=== PATIENT | female | born 1965 | race Hispanic/Latino ===

== ENCOUNTER 2017-05-19 09:08 | Observation (INO) | payer OTHER ==
--- NOTE | 2017-05-19 09:25 | ED PDOC ---
Arrival/HPI - General Chief Complaint: Weakness/Neurological Deficit Time Seen by Provider: 05/19/17 09:10 Historian: Patient - History of Present Illness Narrative History of Present Illness (Text): 05/19/17 09:10 Ratna Pina is a 52 year old female, whose past medical history includes hypothyroidism, lupus, and migraines, who presents to the emergency department complaining of intermittent episodes of chest pressure for the past three weeks. Patient reports today the pain has radiated to her left shoulder blade and today her left arm went numb causing it to feel weak. Patient denies any shortness of breath, headache, cough, nausea, vomiting, abdominal pain, back pain, lower extremity pain, or other complaints. PMD: Dr. Zacarias Time/Duration: Prior to Arrival (left arm numbness) Symptom Onset: Gradual Symptom Course: Unchanged Quality: Pressure (chest pressure ) Activities at Onset: Rest Modifying Factors (Text): radiates to left shoulder blade and left arm numbness/weakness Past Medical History - Provider Review Nursing Documentation Reviewed: Yes - Infectious Disease Hx of Infectious Diseases: None - Tetanus Immunization Tetanus Immunization: Unknown - Cardiac Hx Pacemaker: No - Neurological Hx Paralysis: No - Endocrine/Metabolic Hx Systemic Lupus Erythematosus: Yes - Musculoskeletal/Rheumatological Hx Musculoskeletal Disorders: No - Psychiatric Hx Emotional Abuse: No Hx Physical Abuse: No - Anesthesia Hx Anesthesia: No - Suicidal Assessment Feels Threatened In Home Enviroment: No Family/Social History - Physician Review Nursing Documentation Reviewed: Yes Family/Social History: Other (father had heart bypass ) Smoking Status: Never Smoked Hx Alcohol Use: No Hx Substance Use Treatment: No Allergies/Home Meds Allergies/Adverse Reactions: Allergies epinephrine Allergy (Verified 05/19/17 13:58) RASH Home Medications: Home Meds Medication Instructions Recorded Confirmed Enalapril [Vasotec] 5 mg PO DAILY 09/20/12 05/19/17 Hydroxychloroquine Sulfate 200 mg PO DAILY 09/20/12 05/19/17 [Plaquenil] Levothyroxine [Synthroid] 100 mcg PO QAM 09/20/12 05/19/17 Divalproex [Depakote] 250 mg PO TID 10/08/12 05/19/17 Review of Systems - Review of Systems Constitutional: absent: Fevers Eyes: absent: Vision Changes Respiratory: absent: SOB, Cough Cardiovascular: Other (intermittent chest pressure) Musculoskeletal: Other (sharp shoulder blade pain). absent: Back Pain Neurological: Focal Weakness (left arm numbness and weakness). absent: Headache , Dizziness Physical Exam Vital Signs Reviewed: Yes Vital Signs Temp Pulse Resp BP Pulse Ox 05/19/17 15:31 98.5 F 72 17 132/60 100 05/19/17 10:47 73 17 150/80 100 05/19/17 09:20 98.4 F 92 H 17 158/92 H 100 Temperature: Afebrile Blood Pressure: Hypertensive Pulse: Regular Respiratory Rate: Normal Appearance: Positive for: Well-Appearing, Non-Toxic, Comfortable Pain Distress: None Mental Status: Positive for: Alert and Oriented X 3 Finger Stick Blood Glucose: 87 - Systems Exam Head: Present: Atraumatic, Normocephalic Neck: Present: Normal Range of Motion Respiratory/Chest: Present: Clear to Auscultation, Good Air Exchange. No: Respiratory Distress, Accessory Muscle Use Cardiovascular: Present: Regular Rate and Rhythm, Normal S1, S2. No: Murmurs Upper Extremity: Present: Normal Inspection, Normal ROM, NORMAL PULSES, Capillary Refill < 2s. No: Cyanosis, Edema, Tenderness, Swelling, Erythema Lower Extremity: Present: Normal Inspection, NORMAL PULSES, Normal ROM. No: Edema, CALF TENDERNESS, Cyanosis, Tenderness, Swelling, Erythema Neurological: Present: GCS=15, CN II-XII Intact, Speech Normal, Motor Func Grossly Intact, Normal Sensory Function, Normal Cerebellar Funct Skin: Present: Warm, Dry, Normal Color. No: Rashes Psychiatric: Present: Alert, Oriented x 3, Normal Insight, Normal Concentration Medical Decision Making ED Course and Treatment: 05/19/17 EKG: Ordered, reviewed, and independently interpreted the EKG. Rate : 87 BPM Rhythm : NSR Interpretation : No ST-segment elevations or depressions, no T-wave inversions, normal intervals. No ischemia. 05/19/17 11:[address]: Creator : Marcell Schulz MD FINDINGS: HEMORRHAGE: No intracranial hemorrhage. BRAIN: No mass effect or edema. No atrophy or chronic microvascular ischemic changes. VENTRICLES: Unremarkable. No hydrocephalus. CALVARIUM: Unremarkable. PARANASAL SINUSES: Unremarkable as visualized. No significant inflammatory changes. MASTOID AIR CELLS: Unremarkable as visualized. No inflammatory changes. OTHER FINDINGS: None. IMPRESSION: Normal CT of the Head. Dr Palmer srivastava the pt in the emergency department Disc w Dr Zacarias who will admit - Lab Interpretations Lab Results: 05/19/17 09:36 05/19/17 09:36 Lab Results 05/19/17 09:36: Hemoglobin A1c 5.2 05/19/17 09:36: Triglycerides 95, Cholesterol 193, LDL Cholesterol Direct 118, HDL Cholesterol 48 05/19/17 09:36: TSH 3rd Generation 2.90 05/19/17 09:36: Sodium 143, Potassium 4.1, Chloride 104, Carbon Dioxide 30, Anion Gap 13, BUN 17, Creatinine 0.8, Est GFR ( Amer) > 60, Est GFR (Non- Af Amer) > 60, Random Glucose 102, Calcium 9.2, Total Bilirubin 0.4, AST 24, ALT 30, Alkaline Phosphatase 35 L, Troponin I < 0.01, Total Protein 7.3, Albumin 4.1, Globulin 3.2, Albumin/Globulin Ratio 1.3 05/19/17 09:36: WBC 6.1 D, RBC 4.71, Hgb 14.6, Hct 42.3, MCV 89.8, MCH 31.0, MCHC 34.5, RDW 12.7, Plt Count 172, MPV 10.5, Gran % 49.1 L, Lymph % (Auto) 37.0 H, [place] % (Auto) 10.3 H, Eos % (Auto) 3.4, Baso % (Auto) 0.2, Gran # 3.02, Lymph # 2.3, [place] # 0.6, Eos # 0.2, Baso # 0.01 05/19/17 09:24: Urine Color Yellow, Urine Appearance Sl cloudy, Urine pH 6.0, Ur Specific [place] >= 1.030, Urine Protein Trace H, Urine Glucose (UA) Negative , Urine Ketones Negative, Urine Blood Negative, Urine Nitrate Negative, Urine Bilirubin Negative, Urine Urobilinogen 0.2, Ur Leukocyte Esterase Negative, Urine RBC Negative, Urine WBC 0 - 2, Ur Epithelial Cells Many, Urine Bacteria Many, Urine HCG, Qual Negative 05/19/17 09:18: POC Glucose (mg/dL) 87 I have reviewed the lab results: Yes - RAD Interpretation Radiology Orders: 05/19/17 09:22 HEAD W/O CONTRAST [CT] Stat CHEST PORTABLE [RAD] Stat 05/19/17 09:23 ANGIOGRAPHY DISECTION PROTOCOL [CT] Stat Hcc Coders: Radiologist - EKG Interpretation Interpreted by ED Physician: Yes Type: 12 lead EKG - Medication Orders Current Medication Orders: Aspirin (Aspirin Chewable) 81 mg PO DAILY [facility] Divalproex Sodium (Depakote Dr (*Bid*)) 250 mg PO TID [facility] PRN Reason: Protocol Last Admin: 05/19/17 15:39 Dose: 250 mg Hydroxychloroquine Sulfate (Plaquenil) 200 mg PO DAILY [facility] Last Admin: 05/19/17 15:56 Dose: Not Given Non-Admin Reason: Patient Refused Levothyroxine Sodium (Synthroid) 100 mcg PO QAM [facility] Lisinopril (Zestril) 5 mg PO DAILY [facility] Last Admin: 05/19/17 15:56 Dose: Not Given Non-Admin Reason: Patient Refused Naproxen (Anaprox Ds) 550 mg PO BID [facility] Last Admin: 05/19/17 16:11 Dose: Not Given Non-Admin Reason: Patient in Cardiology Pantoprazole Sodium (Protonix Ec Tab) 40 mg PO 0630 [facility] NIHSS Stroke Scale 3 - Date/Time Evaluation Performed Date Performed: 05/19/17 Time Performed: 09:10 When Was NIHSS Performed: Baseline - How Severe is the Stroke Level of Consciousness: 0=Alert LOC to Questions: 0=Both comments correct LOC to commands: 0=Obeys both correctly Best Gaze: 0=Normal Visual: 0=No visual loss Facial: 0=Normal Motor Arm - Left: 0=No drift Motor Arm - Right: 0=No drift Motor Leg - Left: 0=No drift Motor Leg - Right: 0=No drift Limb Ataxia: 0=Absent Sensory: 0=Normal Best Language: 0=No aphasia Extinction & Inattention (Neglect): 0=Normal, no object Severity Of Stroke: 0 = No Stroke - Scribe Statement The provider has reviewed the documentation as recorded by the Pete Rosario Provider Scribe Attestation: All medical record entries made by the Scribe were at my direction and personally dictated by me. I have reviewed the chart and agree that the record accurately reflects my personal performance of the history, physical exam, medical decision making, and the department course for this patient. I have also personally directed, reviewed, and agree with the discharge instructions and disposition. Disposition/Present on Arrival - Present on Arrival Any Indicators Present on Arrival: No History of DVT/PE: No History of Uncontrolled Diabetes: No Urinary Catheter: No History Surgical Site Infection Following: None - Disposition Have Diagnosis and Disposition been Completed?: Yes Diagnosis: Chest pain Disposition: HOSPITALIZED Disposition Time: 11:39 Condition: STABLE
[2017-05-19 09:43] LABS: URINE APPEARANCE SL CLOUDY (CLEAR); URINE BILIRUBIN NEGATIVE (NEGATIVE); URINE BLOOD NEGATIVE (NEGATIVE); URINE COLOR YELLOW (YELLOW); URINE GLUCOSE (UA) NEGATIVE (NEGATIVE); URINE KETONE NEGATIVE (NEGATIVE); URINE LEUKOCYTE ESTERASE NEGATIVE Leu/uL (NEGATIVE); URINE PROTEIN TRACE mg/dL (<30 mg/dL); URINE UROBILINOGEN 0.2 E.U./dL (<1 E.U./dL)
[2017-05-19 09:53] LABS: URINE BACTERIA MANY (NEG); URINE EPITHELIAL CELLS MANY /hpf (0-5); URINE RBC NEGATIVE /hpf (0-2); URINE WBC 0 - 2 /hpf (0-6)
[2017-05-19 09:54] LABS: BASO # 0.01 K/mm3 (0.0-2.0); BASO % 0.2 % (0.0-3.0); EOS # 0.2 (0.0-0.7); EOS % 3.4 % (1.5-5.0); GRAN # 3.02 (1.4-6.5); GRAN % 49.1 % (50.0-68.0); HEMATOCRIT 42.3 % (36.0-48.0); LYMPH # 2.3 (1.2-3.4); MEAN CELL VOLUME 89.8 fl (80.0-105.0); MEAN CORPUSCULAR HGB CONC 34.5 g/dl (31.0-37.0); MEAN PLATELET VOLUME 10.5 fl (7.0-11.0); MONO # 0.6 (0.1-0.6); MONO % 10.3 % (1.0-6.0); RED CELL DISTRIBUTION WIDTH 12.7 % (11.5-14.5); WHITE BLOOD COUNT 6.1 10^3/ul (4.5-11.0)
[2017-05-19 10:03] LABS: ALB/GLOB RATIO 1.3 (1.1-1.8); ALKALINE PHOSPHATASE 35 U/L (38-126); ALT/SGPT 30 U/L (7-56); AST/SGOT 24 U/L (14-36); BILIRUBIN,TOTAL 0.4 mg/dL (0.2-1.3); BLOOD UREA NITROGEN 17 mg/dL (7-21); CALCIUM 9.2 mg/dL (8.4-10.5); CARBON DIOXIDE 30 mmol/L (21-33); CHLORIDE 104 mmol/L (98-107); GFR AFRICAN-AMERICAN > 60; GLUCOSE,RANDOM 102 mg/dL (70-110); POTASSIUM 4.1 mmol/L (3.6-5.0); SODIUM 143 mmol/L (132-148); TOTAL PROTEIN 7.3 g/dL (5.8-8.3)
[2017-05-19 10:16] LABS: TROPONIN I < 0.01 ng/mL
[2017-05-19 10:42] LABS: CHOLESTEROL 193 mg/dL (130-200)
--- NOTE | 2017-05-19 11:15 | CT ---
PROCEDURE: CT HEAD WITHOUT CONTRAST. HISTORY: left arm numbness COMPARISON: None available. TECHNIQUE: Axial computed tomography images were obtained through the head/brain without intravenous contrast. Radiation dose: Total exam DLP = 678 mGy-cm. This CT exam was performed using one or more of the following dose reduction techniques: Automated exposure control, adjustment of the mA and/or kV according to patient size, and/or use of iterative reconstruction technique. FINDINGS: HEMORRHAGE: No intracranial hemorrhage. BRAIN: No mass effect or edema. No atrophy or chronic microvascular ischemic changes. VENTRICLES: Unremarkable. No hydrocephalus. CALVARIUM: Unremarkable. PARANASAL SINUSES: Unremarkable as visualized. No significant inflammatory changes. MASTOID AIR CELLS: Unremarkable as visualized. No inflammatory changes. OTHER FINDINGS: None. IMPRESSION: Normal CT of the Head.
--- NOTE | 2017-05-19 11:43 | CT ---
PROCEDURE: CT Angiography Chest, Abdomen and Pelvis with and without intravenous contrast HISTORY: back pain chest pain left arm numbness COMPARISON: None. TECHNIQUE: Contiguous axial images of the chest, abdomen and pelvis were obtained in the phase of aortic enhancement. A noncontrast enhanced CT of the chest was also obtained to evaluate for possible intramural thrombus. Coronal and sagittal reformats were generated. IV dose administered: 150 cc of Omni 350 Radiation dose: Total exam DLP = 1407 mGy-cm. This CT exam was performed using one or more of the following dose reduction techniques: Automated exposure control, adjustment of the mA and/or kV according to patient size, and/or use of iterative reconstruction technique. FINDINGS: CT ANGIOGRAPHY OF THE CHEST WITH & WITHOUT CONTRAST: AORTA (CHEST AND ABDOMEN): The thoracic and abdominal aorta are unremarkable, without aneurysm, dissection or rupture. No intramural thrombus identified in the thoracic aorta on the non-contrast ct of the chest. The celiac axis, superior mesenteric artery, inferior mesenteric artery and the renal arteries are widely patent. The pelvic arteries are unremarkable. LUNGS: Clear. No nodule, mass or consolidation. MEDIASTINUM: Unremarkable. Normal caliber aorta and pulmonary arterial trunk. No aortic dissection. Normal size heart. LYMPH NODES: Unremarkable. PLEURA: Unremarkable. No pneumothorax. No pleural fluid. BONES: Unremarkable. OTHER FINDINGS: None. CT ANGIOGRAPHY OF THE ABDOMEN AND PELVIS WITH CONTRAST: LIVER: Unremarkable. No gross lesion or ductal dilatation. GALLBLADDER AND BILE DUCTS: Unremarkable. PANCREAS: Unremarkable. No gross lesion or ductal dilatation. SPLEEN: Unremarkable. ADRENALS: Unremarkable. No mass. KIDNEYS AND URETERS: Unremarkable. No hydronephrosis. No solid mass. VASCULATURE: Unremarkable. No aortic aneurysm. STOMACH AND BOWEL: Unremarkable. No obstruction. No gross mural thickening. APPENDIX: Normal appendix. PERITONEUM: Unremarkable. No free fluid. No free air. LYMPH NODES: Unremarkable. No enlarged lymph nodes. BLADDER: Unremarkable. REPRODUCTIVE: Unremarkable. BONES: No acute fracture. OTHER FINDINGS: None. IMPRESSION: Negative study. No evidence of dissection
[2017-05-19] MEDS ORDERED: Aminophylline 25 mg/ml Inj ONE (12:47)
--- NOTE | 2017-05-19 12:49 | RAD ---
HISTORY: cp COMPARISON: No prior. FINDINGS: LUNGS: No active pulmonary disease. PLEURA: No significant pleural effusion identified, no pneumothorax apparent. CARDIOVASCULAR: Normal. OSSEOUS STRUCTURES: No significant abnormalities. VISUALIZED UPPER ABDOMEN: Normal. OTHER FINDINGS: None. IMPRESSION: No active disease.
--- NOTE | 2017-05-19 14:36 | CON ---
DATE: 05/19/2017 CHIEF COMPLAINT: Left arm numbness and heaviness. HISTORY OF PRESENT ILLNESS: This is a 52-year-old woman with history of hypothyroidism, lupus, migraine headaches on Depakote and chronic neck pain with cervical surgery in the past, who presented to the hospital with intermittent episodes of chest pressure. In the past few week, she woke up and left like her left side of the face was numb, as well as, her left arm felt weak. Currently, her neurological exam is nonfocal. She has adequate strength. CAT scan of the head showed no acute intracranial abnormalities. CT angiography of the chest showed no abnormalities. She is currently doing much better. She is on Plaquenil for underlying lupus and Depakote for underlying headaches. Headaches have been much better now. No headaches at this time. No changes in sense of vision, taste, smell, or focal weakness. She does have some neck pain intermittently. ALLERGIES: EPINEPHRINE. PAST MEDICAL HISTORY: Cervicogenic headaches, migraines, hypothyroidism, and lupus. MEDICATIONS: Reviewed by nurse reconciliation sheet. FAMILY HISTORY: Noncontributory. REVIEW OF SYSTEMS: A 14-point review of systems is negative except as per the HPI. PHYSICAL EXAMINATION: GENERAL: The patient is sitting up in bed in no acute distress. VITAL SIGNS: Temperature 98.4, pulse rate 73, blood pressure 150/80, respiratory rate 17, and oxygen saturation 100% on room air. HEENT: Atraumatic and normocephalic. PERRLA. Extraocular muscles are intact. NECK: Supple. No JVD. No adenopathy noted. LUNGS: Clear to auscultation. No adventitious sounds. HEART: S1 and S2, normal rate and rhythm. No murmurs, rubs, or gallops. ABDOMEN: Soft, nontender, nondistended. Bowel sounds are present. EXTREMITIES: No clubbing. No cyanosis. Peripheral pulses are 2+ felt bilaterally. NEUROLOGIC: The patient is alert and oriented to person, place, month, and year. Speech is fluent without any errors. Cranial nerves II through XII are intact. Motor exam: Moves all extremities equally. Toes are downgoing bilaterally. Sensory exam: Light touch, pinprick, proprioception, vibration is intact. DTRs are 2+ throughout, 1 at the ankles. Coordination of [id number] intact. Gait is deferred for now. LABORATORY DATA: Sodium 143, potassium 4.1, chloride 104, carbon dioxide 30, BUN 17, creatinine 0.8, and random glucose of 102. ASSESSMENT: This is a 52-year-old woman with history of migraine headaches, cervical disk disease, status post surgery many years ago, history of chronic neck pain, history of hypothyroidism and lupus, who presented with intermittent chest pressure on the left, as well as left arm numbness and heaviness and left facial numbness. No focal neurological deficits seen on examination, likely she is having a combination of a cervicogenic phenomenon of headache with a migraine phenomenon. PLAN: 1. At this time, I would recommend outpatient physical therapy for cervical muscle stretching, craniosacral massage, and myofascial pain release. 2. Continue with Depakote 250 p.o. t.i.d. for underlying headaches in terms of migraines. 3. Aspirin 81 mg p.o. daily and wide relaxation techniques. 4. Advised weight reduction. 5. Followup as an outpatient. Shan Mckeon MD
[2017-05-19] MEDS: Divalproex 250 mg DR (BID formulation) PO SCH ×2 (15:39→18:27)
[2017-05-19] MEDS: Naproxen 550 mg Tab PO SCH ×2 (16:11→18:27)
--- NOTE | 2017-05-19 17:33 | US ---
PROCEDURE: Bilateral carotid artery duplex ultrasound HISTORY: Carotid stenosis TIA PHYSICIAN(S): Jesse Ch MD. TECHNIQUE: Duplex sonography and color-flow Doppler were used to evaluate the carotid bifurcations and limited segments of the vertebral arteries bilaterally. FINDINGS: There is mild smooth hypoechoic plaque noted at the carotid bifurcations bilaterally. The peak systolic velocity in the proximal right internal carotid artery is 88 cm/sec. This corresponds to a 20 to 39% proximal right ICA stenosis. Normal systolic velocities are noted in the proximal right external carotid artery. There is antegrade flow in the right vertebral artery. The peak systolic velocity in the proximal left internal carotid artery is 87 cm/sec. This corresponds to a 20 to 39% proximal left ICA stenosis. Normal systolic velocities are noted in the proximal left external carotid artery. There is antegrade flow in the left vertebral artery. IMPRESSION: 1. Bilateral 20-39% proximal ICA stenoses. 2. Antegrade flow in both vertebral arteries.
--- NOTE | 2017-05-19 19:54 | CARD ---
APPROVED REPORT EKG Measurement Heart [id number] <Conclusion> Normal sinus rhythm Normal ECG
--- NOTE | 2017-05-19 20:23 | HP ---
HISTORY OF PRESENT ILLNESS: The patient is a 52 years old known from previous admission, came to emergency room because of chest pain. The patient states the chest pain has been episodic. She is having intermittent chest pain for the past few weeks, but it would resolve itself, but today, pain persisted and was radiating to her left shoulder and left arm. She also noticed her arm and left hand was numb. Did not have any fever, chills. Denies fever, cough, congestion, nausea, vomiting. No diarrhea. PAST MEDICAL HISTORY: Significant for lupus, migraine headache, hypothyroidism. ALLERGIES: SHE IS ALLERGIC TO EPINEPHRINE THAT CAUSES HER RASH. MEDICATION AT HOME: She is on levothyroxine 100 mcg daily, Plaquenil 200 daily, Enalapril 5 mg daily and Depakote 250 three times a day. SOCIAL HISTORY: She is . Denies smoking or drinking. REVIEW OF SYSTEMS: Left arm numbness and right now, she has no chest pain or pressure. PHYSICAL EXAMINATION GENERAL: She is awake, alert and oriented, communicative. VITAL SIGNS: She is afebrile. Pulse 73, respiration 17, blood pressure 150/80. LUNGS: Bilateral fair airflow. No rhonchi or crackle. HEART: S1 and S2 audible. ABDOMEN: Soft and obese. Nontender. No rebound, no guarding. NEUROLOGICALLY: She is awake, alert, oriented and communicative. EXTREMITIES: Able to move all extremities. LABORATORY DATA: WBC is 6.1, hemoglobin 14.6, hematocrit 42.3, platelet 172. Chemistry: Sodium 143, potassium 4.1, chloride 104, CO2 of 30, BUN 17, creatinine 0.8, blood sugar of 102, LFTs are within normal limit. Urinalysis is unremarkable. She had CT scan of the head done that is unremarkable. CT angio; no evidence of pulmonary embolism. ASSESSMENT: 1. Left-sided chest pain with left arm numbness. 2. History of lupus. 3. History of migraine headaches. 4. Morbid obesity. PLAN: Start the patient on Naprosyn. We will start her on aspirin. She has been restarted on her usual medication, including Depakote with Plaquenil, Protonix and levothyroxine. Cardiology consult by Dr. Chakraborty has been requested. We will get echocardiogram and stress test in a.m. Chaim Zacarias MD [facility] # [id number]
[2017-05-19] MEDS ORDERED: Pneumococcal 23-Valent Vaccine IM ONE (20:39)
[2017-05-19] MEDS ORDERED: Influenza Vaccine 60 mcg/0.5 mL SYR (4YR UP) IM ONE (20:39)
[2017-05-19 20:40] VITALS: BMI 43.2
--- NOTE | 2017-05-19 21:30 | CON ---
DATE: 05/19/2017 TYPE OF DICTATION: Consult Service, Cardiology. REASON FOR CONSULTATION: Chest pain. BRIEF CLINICAL HISTORY: A 52-year-old obese female with body mass index of 43.4 kg per meters squared, came in with complaint of 2 days history of chest pain, something sitting in the chest, like a book, and then this morning, the patient had chest pain, went to the back, radiating sharp and then felt a numbness in the left hand and then numbness and tingling sensation in the feet. Denies any dyspnea on exertion or chest pain, recently on exertion. PAST HISTORY: Significant for SLE, back surgery, hypothyroidism, hypertension. SOCIAL HISTORY: Denies any history of smoking. CURRENT MEDICATIONS: The patient is taking levothyroxine, hydroxychloroquine 200, enalapril 5 mg, Depakote. REVIEW OF SYSTEMS: As per HPI. PHYSICAL EXAMINATION VITAL SIGNS: Temperature is afebrile, heart rate is 92, and blood pressure is 150/80. HEENT: PERRLA. Extraocular muscles are intact. NECK: Supple. No carotid bruit or thyromegaly. CHEST: Clear to auscultation. HEART: S1 and S2 regular. ABDOMEN: Soft. EXTREMITIES: Clubbing and cyanosis negative. DIAGNOSTIC DATA: EKG shows normal sinus, no ST-T wave changes noted. LABORATORY DATA: WBC 6.1, hemoglobin 14.6, hematocrit 42.3 and platelet count 172. Chemistry shows sodium 143, potassium 4.0, chloride 104, carbon dioxide 30, anion gap of 13, BUN 7, creatinine 0.8. TSH 2.9. Lipid profile; triglyceride 93, cholesterol 193, LDL 118 and HDL 48. IMPRESSION: Rule-out aortic dissection, rule-out ischemia, coronary artery disease, hypothyroidism, systemic lupus erythematosus, history of spine surgery. RECOMMENDATIONS: We will get aortic dissection protocol to rule-out aortic dissection. He had a negative stress test and echo, rule-out ischemia, rule-out pericarditis and we will get a head CT, also ask neuro evaluation. We will get lipid profile, TSH, hemoglobin A1c. Further recommendations depending on the hospital course. We will follow with you. Thank you Dr. Zacarias, for providing me the opportunity in taking care of the patient. We will follow with you. Alia Chakraborty MD
--- NOTE | 2017-05-19 22:02 | CARD ---
APPROVED REPORT EXAM: Two-dimensional and M-mode echocardiogram with Doppler and color Doppler. INDICATION Chest Pain 2D DIMENSIONS Left Atrium (2D)3.7 (1.6-4.0cm)IVSd1.0 (0.7-1.1cm) LVDd4.5 (3.9-5.9cm)PWd0.9 (0.7-1.1cm) LVDs3.1 (2.5-4.0cm)FS (%) 31.7 % LVEF (%)59.8 (>50%) M-Mode DIMENSIONS Aortic Root3.30 (2.2-3.7cm)Aortic Cusp Exc.1.90 (1.5-2.0cm) Aortic Valve AoV Peak Xrgncfpb664.0cm/Leonor Peak GR.7mmHg Mitral Valve MV E Tehxtpnf41.7cm/sMV A Iikadvny90.6cm/sE/A ratio0.9 TDI Lateral E' Peak V12.70cm/sMedial E' Peak V9.36cm/sE/Lateral E'5.1 E/Medial E'6.9 Pulmonary Valve PV Peak Uooujpek67.5cm/sPV Peak Grad.2mmHg Tricuspid Valve TR Peak Ynslmjdt221ta/sRAP [id number] Peak Gr.22mmHg [id number] LEFT VENTRICLE The left ventricle is normal size. There is normal left ventricular wall thickness. The left ventricular function is normal.EF-55-60% There is normal LV segmental wall motion. Transmitral Doppler flow pattern is Grade III-reversible restrictive diastolic dysfunction. No left ventricle thrombus noted on this study. There is no ventricular septal defect visualized. There is no left ventricular aneurysm. There is no mass noted in the left ventricle. RIGHT VENTRICLE The right ventricle is normal size. There is normal right ventricular wall thickness. The right ventricular systolic function is normal. ATRIA The left atrium size is normal. The right atrium size is normal. The interatrial septum is intact with no evidence for an atrial septal defect. AORTIC VALVE The aortic valve is thickened but opens well. No aortic regurgitation is present. There is no aortic valvular stenosis. There is no aortic valvular vegetation. MITRAL VALVE The mitral valve is thickened but opens well. Mitral regurgitation is trace to mild. There is no mitral valve stenosis. There is no evidence of mitral valve prolapse. TRICUSPID VALVE The tricuspid valve leaflets are thickened , but open well. There is trace to mild tricuspid regurgitation.RVSP-32 mmof Hg There is no tricuspid valve stenosis. There is no tricuspid valve prolapse or vegetation. PULMONIC VALVE The pulmonary valve is normal in structure. GREAT VESSELS The aortic root is normal in size. The ascending aorta is normal in size. The pulmonary artery is normal. The IVC is normal in size and collapses >50% with inspiration. PERICARDIAL EFFUSION There is no pleural effusion. Trivial Pericardial effusion <Conclusion> Normal chamber Size, EF_55-60%. Trace to mild MR/TR RVSP-32 mmof Hg. trivial Pericardialeffusion.
[2017-05-20] MEDS: Divalproex 250 mg DR (BID formulation) PO SCH ×2 (00:31→09:51)
[2017-05-20] MEDS ORDERED: Pantoprazole 40 mg EC Tab PO SCH (06:30)
[2017-05-20 06:56] VITALS: O2SAT 100
--- NOTE | 2017-05-20 08:34 | MRI ---
PROCEDURE: MRI BRAIN WITHOUT CONTRAST HISTORY: numbness COMPARISON: MRI 07/20/2011 TECHNIQUE: Multiplanar, multisequence MR images of the brain were obtained without intravenous contrast enhancement. FINDINGS: HEMORRHAGE: None DWI: No evidence of an acute or early subacute infarction. BRAIN PARENCHYMA: No mass effect or edema. No atrophy or chronic microvascular ischemic changes. VENTRICLES: Unremarkable. No hydrocephalus. CRANIUM: Unremarkable. ORBITS: Grossly unremarkable. PARANASAL SINUSES/MASTOIDS: Clear VASCULAR SYSTEM: Skull base flow voids intact. OTHER FINDINGS: The report concurs with the preliminary [facility] report IMPRESSION: Unremarkable non contrast enhanced MRI of the brain.
[2017-05-20 09:24] LABS: BASO # 0.02 K/mm3 (0.0-2.0); BASO % 0.4 % (0.0-3.0); EOS # 0.2 (0.0-0.7); EOS % 2.8 % (1.5-5.0); GRAN # 2.82 (1.4-6.5); GRAN % 52.1 % (50.0-68.0); HEMATOCRIT 43.1 % (36.0-48.0); LYMPH % 36.2 % (22.0-35.0); MEAN CELL VOLUME 90.7 fl (80.0-105.0); MEAN CORPUSCULAR HEMOGLOBIN 30.3 pg (25.0-35.0); MEAN CORPUSCULAR HGB CONC 33.4 g/dl (31.0-37.0); MEAN PLATELET VOLUME 10.5 fl (7.0-11.0); MONO # 0.5 (0.1-0.6); MONO % 8.5 % (1.0-6.0); WHITE BLOOD COUNT 5.4 10^3/ul (4.5-11.0)
--- NOTE | 2017-05-20 09:24 | CARD ---
APPROVED REPORT Protocol: LEXISCAN Test Type: Lexiscan Sestamibi Stress Test Attending Physician: Dr. Alia Mclaughlin Referring Physician: Dr. Zacarias Test Indications: Chest Pain Height:5 ft 6 in Weight:268lbs Medications: levothyroxine, plaquenil, vasotec, depakote Medical History: 52 year old female with a h/o hypothyroidism, lupas and migraines Target HR: 168 bpm Resting ECG: RSR. Resting Heart Rate: 86 bpm Resting Blood Pressure: 138/76mmHg Submaximum (85%): 143 bpm PROCEDURE Pharmacologic stress testing was performed using 0.4mg per 5ml of regadenoson given intravenously over 7-10 seconds. POST EXERCISE Reason for Termination: Protocol completed Target HR: No Max HR: 107 bpm 74% of Maximum Predicted HR: 168 bpm Exercise duration: 00:32 min:sec, 0 Stage Exercise capacity: 1.0METs Max Blood Pressure: 156/74mmHg Blood Pressure response to exercise: normal resting BP - appropriate response Heart Rate response to exercise: appropriate Chest Pain: No, none Angina index: 0 Arrhythmia: No, none ST Change: Yes, Less than 1mm ST Segment Depression in 2,3,AVF,V4,V5, V6, Deviation: 0 mm TEST SUMMARY [id number]. INFUSIONDOSE 100:[id number]/.[id number]. [id number]. INTERPRETATION Stress EKG Conclusion: IV LEXISCAN NUCLEAR STRESS TEST NEGATIVE FOR CHEST PAIN AND NEGATIVE FOR ST-T CHANGES. NUCLEAR SCAN REPORT PENDING. Signed by Alia Mclaughlin Electronically Approved: 05/19/2017 13:20:33 EXAM: Myocardial Perfusion REST/STRESS Stress Test Type: Pharmacologic Imaging Protocol Rest Spect myocardial perfusion imaging was performed in supine position 45 minutes following the injection of 10.3 mCi of Tc-99 Myoview. At peak stress, the patient was injected intravenously with 30.9mCi of Tc-99 tetrofosmin after an infusion time of 0 minutes and 10 seconds. Gated Stress Spect was performed 65 minutes after intravenous Tc-99 Myoview injection. The images were gated to evaluate regional wall motion and calculate ventricular ejection fraction.Images were reconstructed using backfilter projection method in short horizontal and verticle long axis. Spect slices were generated. LV Perfusion The quality of the study is good. The left ventricle is within normal limits in size. The right ventricle is unremarkable. The lung uptake is normal. The distribution of tracer reveals an area of mildy to moderately decreased perfusion involving distal anterior and apical gtz on the stress study. The remainder of the LV myocardium is unremarkable. The rest myocardial perfusion study shows no significant change. Wall Motion Wall motion study shows good contractility of the left ventricle. LVEF = 67%. Conclusion 1. Essentially normal SPECT myocardial perfusion study. 2. Fixed, distal anterior and apical defects are most likely due to breast attenuation. 3. Normal gated wall motion of the left ventricle. 4. In comparison with the last study of 03/27/2016, there is no significant change.
[2017-05-20 09:38] LABS: BLOOD UREA NITROGEN 12 mg/dL (7-21); CALCIUM 9.2 mg/dL (8.4-10.5); CARBON DIOXIDE 27 mmol/L (21-33); CHLORIDE 103 mmol/L (98-107); GFR AFRICAN-AMERICAN > 60; GLUCOSE,RANDOM 119 mg/dL (70-110); MAGNESIUM 1.8 mg/dL (1.7-2.2); PHOSPHOROUS 3.6 mg/dL (2.5-4.5); SODIUM 142 mmol/L (132-148)
[2017-05-20 09:48] LABS: TROPONIN I < 0.01 ng/mL
[2017-05-20] MEDS: Naproxen 550 mg Tab PO SCH (09:53)
[2017-05-20] MEDS ORDERED: Levothyroxine 100 MCG TAB PO SCH (10:00)
[2017-05-20 12:56] VITALS: BP 96/59; PULSE 73; RESP 18; TEMP 97.6
--- NOTE | 2017-05-20 17:24 | PN ---
DATE: 05/20/2017 REASON FOR CONSULTATION AND FOLLOWUP: Chest pain and cardiac evaluation. SUBJECTIVE: The patient denies any chest pain now. Yesterday, was complaining of like a book sitting on the chest and now this is a much significant improvement, but does feel some pain on twisting the body. OBJECTIVE: GENERAL: Not in apparent distress. VITAL SIGNS: Temperature afebrile, heart rate 68, and blood pressure 115/70. HEENT: PERRLA. Extraocular muscles intact. NECK: Supple. No carotid bruits. No thyromegaly. CHEST: Clear to auscultation. HEART: S1 and S2 regular. ABDOMEN: Soft. EXTREMITIES: Clubbing and cyanosis negative. LABORATORY DATA: Blood workup as follows: WBC 5.5, hemoglobin 14.4, hematocrit 43.1, platelet count 171. Chemistry shows sodium 142, potassium 4.0, chloride 103, carbon dioxide 27, anion gap of 16, BUN 12, creatinine 0.7, and troponin is 0.01. Total CPK 220, total triglyceride 95, total cholesterol 193, low LDL 118, HDL 48, TSH 2.9. IMPRESSION: A 52-year-old female with past medical history significant for systemic lupus erythematosus admitted with intermittent chest pain. Past history lupus, migraine headache, and hypothyroidism. Recent cardiac workup as follows: Echocardiography showed normal LV function [id number] mitral regurgitation, [id number] tricuspid regurgitation, arterial pericardial effusion, right ventricular systolic pressure 32. The patient underwent angiograph CT to rule out aortic protocol was essentially negative. The patient had myocardial perfusion study and Lexiscan done that was essentially normal. No change significant from previous 03/27/2016. CAT scan was negative. The patient had a brain MRI that was also essentially negative. Bilateral carotids 20-39% stenosis, essentially negative. Repeat blood workup done this morning and troponin was 0.01. Electrolytes are within the normal limit. LDL 118 and the patient had mild carotid artery plaque. We will start low dose of Lipitor. Continue levothyroxine. Continue baby aspirin and low dose of Lipitor. Emphasis was made on the weight reduction, activity modification and lifestyle modification and risk factor coronary artery disease. Discussed with the patient. Thank you Dr. Zacarias for providing us the opportunity in taking care of the patient, Ratna Yovani. Alia Chakraborty MD [facility] # [id number]
--- NOTE | 2017-05-20 22:53 | DS ---
HISTORY OF PRESENT ILLNESS: The patient is a 52 years old seen and examined sitting in chair, anxious to go home. She states she still has chest pressure, but better than before. No weakness or numbness in any arm or leg. PHYSICAL EXAMINATION: VITAL SIGNS: She is afebrile. Pulse 73, respiration 18, blood pressure 96/59. LUNGS: Bilateral fair airflow. No rhonchi or crackle. HEART: S1 and S2 audible. ABDOMEN: Soft and nontender. No rebound, no guarding. NEUROLOGIC: She is awake, alert, oriented, communicative, ambulatory. LABORATORY DATA: WBC is 5.4, hemoglobin is 14, hematocrit 43, platelet 171. Chemistry: Sodium 142, potassium 4.0, chloride 103, CO2 of 27, BUN 12, creatinine 0.7, blood sugar of 119. Urinalysis is unremarkable. She has MRI of the brain done that is negative. Carotid Doppler is unremarkable. Myocardial stress test is negative. ASSESSMENT AND PLAN: 1. Probably muscular chest pain. 2. History of lupus, currently on Plaquenil. 3. History of migraine headache, on Depakote seem to be stable. PLAN: The patient is going to be discharge home today. She is given prescription for her shoulder and neck muscle physical therapy. We will follow up with her in office in a week or 2. Chaim Zacarias MD
== END 2017-05-20 13:51 | disposition home or self-care (01) ==
LOC: ED 09:08 → ERH 11:50 → 2RNO 18:01
PROVIDERS: ADMIT Internal Medicine; ATTEND Internal Medicine
DX: R07.89 Other chest pain (principal); G43.909 Migraine, unspecified, not intractable, without status migrainosus; M32.9 Systemic lupus erythematosus, unspecified; M50.80 Other cervical disc disorders, unspecified cervical region; E03.9 Hypothyroidism, unspecified; I10 Essential (primary) hypertension; I31.3 Pericardial effusion (noninflammatory); I08.1 Rheumatic disorders of both mitral and tricuspid valves; E66.01 Morbid (severe) obesity due to excess calories; Z68.41 Body mass index [BMI] 40.0-44.9, adult; Z88.8 Allergy status to other drugs, medicaments and biological substances
CPT/HCPCS: 36415; 70450; 70551; 71010; 71275; 74175; 78452; 80048; 80053; 80061; 81001; 82550; 82948; 83036; 83615; 83735; 84100; 84443; 84484; 84703; 85025; 93005; 93017; 93306; 93880; 99285; A9502; G0378; Q9967

== ENCOUNTER 2018-11-26 13:47 | Outpatient (CLI) | payer OTHER | END 2018-11-26 13:48 | disposition home or self-care (01) | LOC: LAB 13:47 ==

== ENCOUNTER 2018-11-27 13:30 | Outpatient (CLI) | payer OTHER | END 2018-11-27 13:31 | disposition home or self-care (01) | LOC: CARDIO 13:30 ==

== ENCOUNTER 2018-11-28 11:00 | Outpatient (CLI) | payer OTHER | END 2018-11-28 11:01 | disposition home or self-care (01) | LOC: LAB 11:00 ==

== ENCOUNTER 2018-12-30 09:43 | Outpatient (CLI) | payer OTHER | END 2018-12-30 09:44 | disposition home or self-care (01) | LOC: RAD 09:43 ==